=== PATIENT | female | born 2000 | race Asian ===

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

== ENCOUNTER → 2019-04-06 | Outpatient (CLI) | payer MEDICAID, OTHER ==
--- NOTE | 2019-04-06 14:50 | RAD ---
Examination: DIGITAL DIAGNOSTIC RT, US GUID NDL PLACE/ASPI/BX History: Right breast mass Comparison/Correlation: 03/10/2019 Limited right breast ultrasound exam performed at an outside institution Findings: Risks and benefits of ultrasound-guided core biopsy with clip marker placement were discussed with patient and informed consent was obtained. Cleansing with ChloraPrep about the right outer breast and periareolar region was performed. Sterile probe cover and sterile gel were utilized. Approximately 7 cc 1 percent lidocaine was administered for a lateral approach. Small scalpel incision was made. 12-gauge core biopsy needle was placed under ultrasound guidance adjacent to the right breast mass a total 3 times and samples were placed within the formalin jar. Biopsy clip marker was then placed under ultrasound guidance into the mass. Patient tolerated procedure well without immediate palpitations. Postbiopsy MLO and CC images were obtained and reviewed on a dedicated separate mammography workstation. Biopsy clip marker is present within the mass at the right upper outer breast. Right breast is heterogeneously dense. No hematoma collection is detected. Impression: Successful biopsy of the right upper outer breast mass. Specimens sent to lab. Electronically signed by: Fuentes Orr MD (04/06/2019 2:47 PM) [facility]
--- NOTE | 2019-04-07 18:06 | PATHOLOGY ---
[facility] Accession Number: [id number] . 01 Material submitted: . breast - RIGHT BREAST, 10:00, 6CFN. Modifiers: right, 10:00 . 01 Clinical history: . rt breast mass . 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 LBQ 04/07/2019 1452 Local . 02 Comment: There is no evidence of malignancy. (JPM/db; 04/07/2019) . 02 Electronically signed: . Jamie Robbins MD, Pathologist NPI- [id number] . 01 Gross description: . The specimen is received in formalin, labeled "Po, Mitty, right breast 10:00 6cfn" and consists of 3 fragments of pink-lieberman tissue measuring between 1.3 cm and 2.3 cm in length and 0.2 cm each in diameter which are entirely submitted in A1-A3. The specimen was obtained at 10:15 AM on 04/06/2019 and placed in formalin at 10:20 AM. The cold ischemic time is 5 minutes and the total formalin fixation time is greater than 6 hours but less than 72 hours. (SDY; 04/06/2019) SYU/SYU 04/06/2019 1448 Local . 02 Pathologist provided ICD-10: D24.1 . 02 CPT . 994093 Specimen Comment: A courtesy copy of this report has been sent to [phone], [phone] Specimen Comment: [id number] Specimen Comment: Report sent to / DR ORTIZ Performed at: [address], [place], [place] [id number] MD Cristhian Mays MD Phone: [phone] Performed at: 02 [facility] [address] [place], [place] [id number] MD Jamie Robbins MD Phone: [phone]
== END ==
LOC: US 09:25
PROVIDERS: ATTEND Social Worker
DX: N63.10 Unspecified lump in the right breast, unspecified quadrant (principal); D24.1 Benign neoplasm of right breast
CPT/HCPCS: 19083; 77065; C1713; 19081; 76942